=== PATIENT | male | born 1935 | race Caucasian/White ===

== ENCOUNTER 2018-01-02 08:47 | Outpatient (CLI) | payer MEDICARE, BC ==
[~2018-01-02 08:47] MED LIST: AMIO200T57 PO; ASPI-1265 PO; CALC0.2536 PO; CEFA1VIA10 IV; CLOP75TA35 PO; COU1T PO; DIPH-423 PO; DOCU100C40 PO; EPOE200015 SQ; FLO0.4C PO; HYDR-3972 PO; Metoprolol Tartrate PO; Nutritional Supplement PO; PANT-47 PO; ZIN220C PO; ZOF4I IV
== END 2018-01-02 23:59 | disposition home or self-care (01) ==
LOC: VAS 08:47
PROVIDERS: ATTEND Internal Medicine Critical Care Medicine
DX: M79.89 Other specified soft tissue disorders (principal); M79.661 Pain in right lower leg; M79.662 Pain in left lower leg; I10 Essential (primary) hypertension; R60.0 Localized edema; Z95.1 Presence of aortocoronary bypass graft
CPT/HCPCS: 93970

== ENCOUNTER → 2021-06-23 | Outpatient (CLI) | payer MEDICARE, BC ==
[~2021-06-23] MED LIST changes: -AMIO200T57 PO; +AMIO200T61 PO; +CLOP75TA34 PO; -CLOP75TA35 PO; -ZIN220C PO; +ZINC220C11 PO
== END | disposition home or self-care (01) ==
LOC: RT 10:36
PROVIDERS: ATTEND Specialist
DX: R94.2 Abnormal results of pulmonary function studies (principal)
CPT/HCPCS: 94010; 94727; 94729